=== PATIENT | female | born 1980 | race Caucasian/White ===

== ENCOUNTER 2017-07-15 14:45 | Day surgery (SDC) | payer OTHER ==
[~2017-07-15] VITALS: Ht 160 cm; Wt 107.2 kg
[~2017-07-15 14:45] MED LIST: Amoxicillin500 MG PO; Bactrim Ds Tab1 EACH PO; CYCL10 PO; HYDACE5 PO; Norco 5-325 Ta1 EACH PO; PENVK500 PO; Pyridium200 MG PO; RXHYDACE PO; RXPENVK250 PO; TYL; [UNRECOGNIZED DRUG - OTHER]
[2017-07-15] MEDS ORDERED: [UNRECOGNIZED DRUG - OTHER] (14:58)
[2017-07-15] MEDS ORDERED: Abilify2 MG (14:58)
[2017-07-15] MEDS ORDERED: BUPR75 (14:58)
== END 2017-07-15 17:25 | disposition home or self-care (01) ==
LOC: ORSCSDS 14:45
PROVIDERS: Orthopaedic Surgery
PROC: 01N50ZZ Release Median Nerve, Open Approach (ICD-10-PCS; principal; 2017-07-15 16:10)
DX: G56.01 Carpal tunnel syndrome, right upper limb (principal); F32.9 Major depressive disorder, single episode, unspecified; M06.9 Rheumatoid arthritis, unspecified; Z79.899 Other long term (current) drug therapy; Z87.891 Personal history of nicotine dependence; E66.9 Obesity, unspecified; Z68.41 Body mass index [BMI] 40.0-44.9, adult
CPT/HCPCS: J2250; J3010

== ENCOUNTER 2018-02-24 07:01 | Day surgery (SDC) | payer OTHER ==
[~2018-02-24] VITALS: Ht 160 cm; Wt 117.3 kg
[~2018-02-24 07:01] MED LIST changes: +Abilify2 MG; +Abilify2 MG PO; +Advil200 M1 PO; +BUPR75; +Bupropion HCl200 MG PO; +EMOQUETTE1 EACH PO; +Naltrexone HCl50 MG PO; +VITAMIN D35000 UNI1 PO; +[UNRECOGNIZED DRUG - OTHER]
--- NOTE | 2018-02-24 07:57 | NUR ---
02/24/18 0757 Bethany Ramsey V PT RESTING IN BED, SIDE RAILS IN PLACE, CALL LIGHT WITHIN REACH, VSS. PT TEACHING COMPLETED. PT DENIES PAIN, DISCOMFORT, AND QUESTIONS AT THIS TIME.
== END 2018-02-24 09:16 | disposition home or self-care (01) ==
LOC: ORSCSDS 07:01
PROVIDERS: Orthopaedic Surgery
PROC: 01N50ZZ Release Median Nerve, Open Approach (ICD-10-PCS; principal; 2018-02-24 08:30)
DX: G56.02 Carpal tunnel syndrome, left upper limb (principal); E66.01 Morbid (severe) obesity due to excess calories; Z68.42 Body mass index [BMI] 45.0-49.9, adult; Z87.891 Personal history of nicotine dependence; Z79.899 Other long term (current) drug therapy
CPT/HCPCS: J2250; J3010; J7120

== ENCOUNTER 2018-09-03 06:34 | Emergency (ER) | payer OTHER ==
[~2018-09-03] VITALS: Ht 160 cm; Wt 120.7 kg
[2018-09-03] MEDS ORDERED: CEPHALEXIN (06:57)
[2018-09-03] MEDS ORDERED: PHENTERMINE (06:57)
[2018-09-03 07:58] LABS: BASOPHILS ABSOLUTE AUTO 0.04 K/mm3 (0.00-0.23); BASOPHILS PERCENT AUTO 0 % (0-2); EOSINOPHILS ABSOLUTE AUTO 0.07 K/mm3 (0.00-0.68); EOSINOPHILS PERCENT AUTO 1 % (0-6); Hematocrit 43.5 % (33.0-51.0); Hemoglobin 14.3 g/dL (11.5-16.0); IMMATURE GRAN ABSOLUTE AUTO 0.04 K/mm3 (0.00-0.10); IMMATURE GRAN PERCENT AUTO 0 % (0-1); LYMPHOCYTES ABSOLUTE AUTO 2.35 K/mm3 (0.84-5.20); LYMPHOCYTES PERCENT AUTO 17 % (21-46); MONOCYTES ABSOLUTE AUTO 0.77 K/mm3 (0.16-1.47); MONOCYTES PERCENT AUTO 6 % (4-13); Mean Corpuscular HGB 28.1 pg (26.0-34.0); Mean Corpuscular HGB Conc 32.9 g/dL (31.5-36.5); Mean Corpuscular Volume 86 fL (80-100); Mean Platelet Volume 9.3 fL (9.1-12.4); NEUTROPHILS ABSOLUTE AUTO 10.42 K/mm3 (1.96-9.15); NEUTROPHILS PERCENT AUTO 76 % (41-73); Platelet Count 365 K/mm3 (150-400); RDW Coefficient Variation 11.9 % (11.7-14.2); RDW Standard Deviation 37.3 fL (35.1-46.3); Red Blood Cell Count 5.08 M/mm3 (3.80-5.20); White Blood Cell Count 13.69 K/mm3 (4.00-11.30)
[2018-09-03 08:18] LABS: Anion Gap 7 mmol/L (6-16); Blood Urea Nitrogen 11 mg/dL (8-24); Bun/Creatinine Ratio 16.2 (12.0-20.0); CO2, Blood 25 mmol/L (21-32); Calcium, Blood 8.7 mg/dL (8.5-10.1); Chloride, Blood 107 mmol/L (98-108); Creatinine, Blood 0.68 mg/dL (0.40-1.00); Glomerular Filtration Rate >60 (60-); Glucose, Blood 100 mg/dL (70-99); Potassium, Blood 3.8 mmol/L (3.5-5.5); Sodium, Blood 139 mmol/L (136-145)
[2018-09-03] MEDS ORDERED: Bactrim Ds Tab1 EACH PO (08:30)
== END 2018-09-03 08:55 | disposition home or self-care (01) ==
LOC: ER 06:34
PROVIDERS: Physician Assistant
DX: L03.116 Cellulitis of left lower limb (principal); Z87.891 Personal history of nicotine dependence
CPT/HCPCS: 36415; 80048; 85025; 96374; 99283-25; J1885

== ENCOUNTER → 2018-12-08 | Outpatient (CLI) | payer OTHER ==
[~2018-12-08] MED LIST changes: +CEPHALEXIN; +PHENTERMINE
[2018-12-11 01:06] LABS: CHLAMYDIA TRACHOMATIS, NAA Negative (Negative); NEISSERIA GONORRHOEAE, NAA Negative (Negative)
== END | disposition home or self-care (01) ==
LOC: LAB SHORT 11:45 → LAB 11:45
PROVIDERS: Advanced Practice Midwife
DX: Z11.3 Encounter for screening for infections with a predominantly sexual mode of transmission (principal)
CPT/HCPCS: 87491; 87591

== ENCOUNTER 2021-05-07 11:49 | Day surgery (SDC) | payer BC, OTHER ==
[~2021-05-07] VITALS: Ht 160 cm; Wt 112.6 kg
[2021-05-07] MEDS ORDERED: ERGO50000 (12:09)
== END 2021-05-07 14:18 | disposition home or self-care (01) ==
LOC: ORSCSDS 11:49
PROVIDERS: Student in an Organized Health Care Education/Training Program
PROC: 0DB68ZX Excision of Stomach, Via Natural or Artificial Opening Endoscopic, Diagnostic (ICD-10-PCS; principal; 2021-05-07 13:00)
DX: Z01.818 Encounter for other preprocedural examination (principal); K31.7 Polyp of stomach and duodenum; K29.70 Gastritis, unspecified, without bleeding; R73.9 Hyperglycemia, unspecified; F32.A Depression, unspecified; E78.2 Mixed hyperlipidemia; E66.01 Morbid (severe) obesity due to excess calories; Z68.41 Body mass index [BMI] 40.0-44.9, adult; Z87.891 Personal history of nicotine dependence; Z79.899 Other long term (current) drug therapy
CPT/HCPCS: 88305; 88342; J0461; J2405; J2704; J3010

== ENCOUNTER → 2022-02-18 | Outpatient (CLI) | payer BC, OTHER ==
[~2022-02-18] MED LIST changes: +ERGO50000
== END | disposition home or self-care (01) ==
LOC: LAB SHORT 08:13
DX: N39.0 Urinary tract infection, site not specified (principal)
CPT/HCPCS: 87077; 87086; 87186

== ENCOUNTER → 2022-04-29 | Outpatient (CLI) | payer BC, OTHER ==
[2022-05-01 15:07] LABS: HPV 16 Negative (Negative); HPV 18 Negative (Negative); HPV OTHER HR TYPES Negative (Negative)
== END | disposition home or self-care (01) ==
LOC: LAB 11:32 → LAB SHORT 11:32
PROVIDERS: Advanced Practice Midwife
DX: Z01.419 Encounter for gynecological examination (general) (routine) without abnormal findings (principal)
CPT/HCPCS: 87624; G0145

== ENCOUNTER → 2022-05-10 | Outpatient (CLI) | payer BC, OTHER ==
[2022-05-10 12:37] LABS: BASOPHILS ABSOLUTE AUTO 0.04 K/mm3 (0.00-0.23); BASOPHILS PERCENT AUTO 0 % (0-2); EOSINOPHILS ABSOLUTE AUTO 0.06 K/mm3 (0.00-0.68); EOSINOPHILS PERCENT AUTO 1 % (0-6); Hemoglobin 13.8 g/dL (11.5-16.0); IMMATURE GRAN ABSOLUTE AUTO 0.02 K/mm3 (0.00-0.10); IMMATURE GRAN PERCENT AUTO 0 % (0-1); LYMPHOCYTES PERCENT AUTO 24 % (21-46); MONOCYTES ABSOLUTE AUTO 0.64 K/mm3 (0.16-1.47); MONOCYTES PERCENT AUTO 6 % (4-13); Mean Corpuscular HGB Conc 33.7 g/dL (31.5-36.5); Mean Corpuscular Volume 86 fL (80-100); Mean Platelet Volume 9.5 fL (9.1-12.4); NEUTROPHILS ABSOLUTE AUTO 6.96 K/mm3 (1.96-9.15); NEUTROPHILS PERCENT AUTO 69 % (41-73); Platelet Count 355 K/mm3 (150-400); RDW Coefficient Variation 11.8 % (11.7-14.2); RDW Standard Deviation 36.8 fL (35.1-46.3); Red Blood Cell Count 4.76 M/mm3 (3.80-5.20); White Blood Cell Count 10.12 K/mm3 (4.00-11.30)
[2022-05-10 12:52] LABS: Albumin/Globulin Ratio 1.1 (0.8-1.8); Bilirubin, Total 0.6 mg/dL (0.1-1.0); Bun/Creatinine Ratio 14.5 (12.0-20.0); Calcium, Blood 9.3 mg/dL (8.5-10.1); Creatinine, Blood 0.83 mg/dL (0.40-1.00); Globulin, Blood 3.7 g/dL (2.2-4.0); Total Protein, Blood 7.7 g/dL (6.4-8.2)
== END | disposition home or self-care (01) ==
LOC: LAB 12:27 → LAB SHORT 12:27
PROVIDERS: Physician Assistant
DX: R10.11 Right upper quadrant pain (principal)
CPT/HCPCS: 80053; 83690; 85025

== ENCOUNTER → 2022-05-11 | Outpatient (CLI) | payer BC, OTHER ==
[2022-05-11 12:15] LABS: BASOPHILS ABSOLUTE AUTO 0.05 K/mm3 (0.00-0.23); BASOPHILS PERCENT AUTO 1 % (0-2); EOSINOPHILS ABSOLUTE AUTO 0.08 K/mm3 (0.00-0.68); EOSINOPHILS PERCENT AUTO 1 % (0-6); Hematocrit 40.3 % (33.0-51.0); Hemoglobin 13.7 g/dL (11.5-16.0); IMMATURE GRAN ABSOLUTE AUTO 0.02 K/mm3 (0.00-0.10); IMMATURE GRAN PERCENT AUTO 0 % (0-1); LYMPHOCYTES ABSOLUTE AUTO 2.29 K/mm3 (0.84-5.20); LYMPHOCYTES PERCENT AUTO 26 % (21-46); MONOCYTES ABSOLUTE AUTO 0.41 K/mm3 (0.16-1.47); MONOCYTES PERCENT AUTO 5 % (4-13); Mean Corpuscular HGB 29.2 pg (26.0-34.0); Mean Corpuscular Volume 86 fL (80-100); Mean Platelet Volume 9.6 fL (9.1-12.4); NEUTROPHILS ABSOLUTE AUTO 5.88 K/mm3 (1.96-9.15); NEUTROPHILS PERCENT AUTO 67 % (41-73); Platelet Count 336 K/mm3 (150-400); RDW Coefficient Variation 11.8 % (11.7-14.2); RDW Standard Deviation 36.5 fL (35.1-46.3); Red Blood Cell Count 4.69 M/mm3 (3.80-5.20); White Blood Cell Count 8.73 K/mm3 (4.00-11.30)
[2022-05-11 13:08] LABS: Albumin, Blood 3.9 g/dL (3.4-5.0); Bilirubin, Total 0.4 mg/dL (0.1-1.0); Bun/Creatinine Ratio 22.4 (12.0-20.0); Calcium, Blood 9.4 mg/dL (8.5-10.1); Creatinine, Blood 0.71 mg/dL (0.40-1.00); Globulin, Blood 4.1 g/dL (2.2-4.0); Potassium, Blood 4.2 mmol/L (3.5-5.5)
== END | disposition home or self-care (01) ==
LOC: LAB 12:07 → LAB SHORT 12:07
PROVIDERS: Physician Assistant
DX: K80.50 Calculus of bile duct without cholangitis or cholecystitis without obstruction (principal); R74.8 Abnormal levels of other serum enzymes
CPT/HCPCS: 80053; 83690; 85025

== ENCOUNTER → 2023-11-18 | Outpatient (CLI) | payer OTHER ==
[~2023-11-18] MED LIST changes: +MULTI-VITAMIN1 EAC2 PO; +OXYC5 PO
[2023-11-18 15:30] LABS: Bacterial Vaginosis PCR Negative (NEGATIVE); Candida Group, PCR DETECTED (NOT DETECT); Candida glabrata-krusei, PCR NOT DETECTED (NOT DETECT)
== END | disposition home or self-care (01) ==
LOC: LAB SHORT 13:09 → LAB 13:09
PROVIDERS: Obstetrics & Gynecology
DX: N76.0 Acute vaginitis (principal)
CPT/HCPCS: 87481; 87661; 87801